=== PATIENT | male | born 1950 | race Caucasian/White ===

== ENCOUNTER → 2017-03-14 | Outpatient (CLI) | payer MEDICARE ==
[~2017-03-14] MED LIST: BARIUM SUSPENSION 2.1% (VANILLA SILQ) 450 ML PO ONE; CATHETER FLUSH 10 ML SYR IV PRN; GI COCKTAIL; IOHEXOL 350 MG/ML 100 ML (OMNIPAQUE 350) VIAL IV ONE; KETO-22 PO; LVT.1T PO; NS 100 ML (IVPB) BAG IV ONE; ONDAN4ODT PO; OXYC-12 PO; PNT40TEC PO
[2017-03-14 10:42] LABS: BLOOD UREA NITROGEN 14 MG/DL (7-18); BUN/CREATININE RATIO 18; CREATININE SERUM 0.79 MG/DL (0.60-1.30); GFR ESTIMATED > 60
== END ==
LOC: CARD 09:45
PROVIDERS: ATTEND Urology
DX: C61 Malignant neoplasm of prostate (principal)
CPT/HCPCS: 36415; 74177; 78306; 82565; 84520

== ENCOUNTER → 2017-03-18 | Outpatient (CLI) | payer MEDICARE ==
[~2017-03-18] MED LIST changes: -BARIUM SUSPENSION 2.1% (VANILLA SILQ) 450 ML PO ONE; -CATHETER FLUSH 10 ML SYR IV PRN; +GADOBUTROL 10 MMOL/10 ML (GADAVIST) VIAL IV ONE; -IOHEXOL 350 MG/ML 100 ML (OMNIPAQUE 350) VIAL IV ONE; -NS 100 ML (IVPB) BAG IV ONE
--- NOTE | 2017-03-21 09:52 | Diagnostic Imaging Report ---
PROCEDURE: MRI pelvis with and without contrast. TECHNIQUE: Multiplanar, multisequence MRI of the pelvis was performed with and without contrast. INDICATION: Prostate cancer. 9 mL of Gadavist was administered intravenously. FINDINGS: There is a 2.5 x 1.9 x 2.2 cm T2 hypointense enhancing gas mass seen in the periphery of the prostate along the right slightly posterior aspect of the prostate. This is seen on previous CT scan of 03/14/2017. This lesion appears to be resulting in a bulging contour of the prostate capsule with no definitive penetration through the capsule. The bulging contour of the capsule at the level of the mass decreases the thickness of the fatty plane between the puborectalis and the prostate; however, there is no definite invasion of the fatty plane the two structures and there is no invasion of the muscle. Posteriorly, this was inseparable from the rectum based on the CT findings. However, the rectal contour appears to be intact on this exam with no evidence of invasion. The seminal vesicles do not appear to be involved. There is no pelvic lymphadenopathy seen. No significant marrow signal abnormality is seen. IMPRESSION: There is an enhancing 2.5 cm lobulated mass along the right side of the prostate gland posteriorly in the peripheral zone bulging the contour of the prostate with no evidence of invasion through the prostate capsule into the adjacent tissues. Dictated by: Dictated on workstation # [id number]
== END ==
LOC: RAD 11:28
PROVIDERS: ATTEND Urology
DX: C61 Malignant neoplasm of prostate (principal)
CPT/HCPCS: 72197

== ENCOUNTER 2017-05-22 05:32 | Outpatient (CLI) | payer MEDICARE ==
[~2017-05-22] VITALS: Ht 174 cm; Wt 93.4 kg
[~2017-05-22 05:32] MED LIST changes: -GADOBUTROL 10 MMOL/10 ML (GADAVIST) VIAL IV ONE
[2017-05-22] MEDS ORDERED: LEVO25TA5 PO (10:10)
[2017-05-22] MEDS ORDERED: AZEL137S11 NS (10:10)
[2017-05-22] MEDS ORDERED: PIOG15TA22 PO (10:10)
== END 2017-05-22 12:01 ==
LOC: PREOP 05:32
PROVIDERS: ATTEND Urology
DX: Z01.818 Encounter for other preprocedural examination (principal); C61 Malignant neoplasm of prostate

== ENCOUNTER 2017-05-24 05:50 | Inpatient (IN) | payer MEDICARE ==
[~2017-05-24] VITALS: Ht 174 cm; Wt 93.4 kg
[~2017-05-24 05:50] MED LIST changes: +AZEL137S11 NS; +LEVO25TA5 PO; +PIOG15TA22 PO
[2017-05-24] MEDS ORDERED: SEVOFLURANE (ULTANE) 15 ML INHAL SOLN ONE ×11 (06:35→11:48)
[2017-05-24] MEDS ORDERED: ONDANSETRON 4 MG/2 ML (SDV) Z0FRAN ONE (06:35)
[2017-05-24] MEDS ORDERED: ROCURONIUM 50 MG/5 ML (ZEMURON) VIAL IV ONE ×2 (06:35→10:02)
[2017-05-24] MEDS ORDERED: proPOfol 200 MG/20 ML (DIPRIVAN) VIAL IV ONE (06:35)
[2017-05-24] MEDS ORDERED: DEXAMETHASONE 10 MG/ML (DECADRON) 1 ML VIAL ONE (06:35)
[2017-05-24] MEDS ORDERED: MIDAZOLAM 2 MG/2 ML (VERSED) VIAL ONE (06:35)
[2017-05-24] MEDS ORDERED: fentaNYL INJECTION 100 MCG/2 ML AMP ONE ×2 (06:35→11:46)
[2017-05-24] MEDS ORDERED: LIDOCAINE PF 2% 5 ML (XYLOCAINE) VIAL ONE (06:35)
[2017-05-24] MEDS ORDERED: LIDOCAINE 4% INJ (XYLOCAINE) 5ML AMP ONE (06:46)
[2017-05-24] MEDS ORDERED: LIDOCAINE TOPICAL 4% 50 ML BTL ONE (06:49)
[2017-05-24] MEDS ORDERED: GLYCOPYRROLATE 0.2 MG/ML (ROBINUL) 2 ML VIAL ONE ×2 (06:54→11:33)
[2017-05-24] MEDS ORDERED: LIDOCAINE TOPICAL 4% 50 ML BTL TP ONE (07:00)
[2017-05-24] MEDS ORDERED: LACTATED RINGERS 1,000 ML IV PRN (07:18)
[2017-05-24 07:20] LABS: BASOPHILS % (AUTO) 0 % (0-10); EOSINOPHILS # (AUTO) 0.2 10^3/uL (0.0-0.3); EOSINOPHILS % (AUTO) 4 % (0-10); LYMPHOCYTES # (AUTO) 1.1 X 10^3 (1.0-4.0); LYMPHOCYTES % (AUTO) 23 % (12-44); MEAN CORPUSCULAR HEMOGLOBIN 31 PG (25-34); MEAN CORPUSCULAR HGB CONC 37 G/DL (32-36); MEAN CORPUSCULAR VOLUME 85 FL (80-99); MEAN PLATELET VOLUME 9.5 FL (7.4-10.4); MONOCYTES # (AUTO) 0.4 X 10^3 (0.0-1.0); MONOCYTES % (AUTO) 9 % (0-12); NEUTROPHILS # (AUTO) 2.9 X 10^3 (1.8-7.8); NEUTROPHILS % (AUTO) 64 % (42-75); PLATELET COUNT 167 10^3/uL (130-400); RED BLOOD COUNT 4.77 10^6/uL (4.35-5.85); RED CELL DISTRIBUTION WIDTH 13.1 % (10.0-14.5); WHITE BLOOD COUNT 4.6 10^3/uL (4.3-11.0)
[2017-05-24] MEDS ORDERED: GLYCOPYRROLATE 0.2 MG/ML (ROBINUL) 2 ML VIAL IV ONE (07:30)
[2017-05-24] MEDS ORDERED: KETAMINE HCL 100 MG/ML 5 ML VIAL ONE (07:41)
[2017-05-24 08:07] VITALS: BP 163/91
[2017-05-24] MEDS ORDERED: SUCCINYLCHOLINE INJ 100 MG/5 ML SYR ONE (10:02)
[2017-05-24] MEDS ORDERED: PHENYLEPHRINE 100 MCG/ML 10 ML (ANESTHESIA) SYR ONE (11:32)
[2017-05-24] MEDS ORDERED: NEOSTIGMINE (BLOXIVERZ ) 1 MG/1ML 10 ML VIAL ONE (11:33)
[2017-05-24] MEDS ORDERED: KETOROLAC 30 MG/ML VIAL ONE (11:41)
[2017-05-24] MEDS ORDERED: BELLADONNA ALK/OPIUM (B & O) 30 MG SUPP PR PRN (11:45)
[2017-05-24] MEDS ORDERED: SIMETHICONE 80 MG (MYLICON) CHEW PO PRN (11:45)
[2017-05-24] MEDS ORDERED: ENOXAPARIN 40 MG/0.4 ML (LOVENOX) SYR SC SCH (11:45)
[2017-05-24] MEDS ORDERED: fentaNYL INJECTION 100 MCG/2 ML AMP IVP PRN (11:45)
[2017-05-24] MEDS ORDERED: ONDANSETRON 4 MG/2 ML (SDV) Z0FRAN IV PRN (11:45)
[2017-05-24] MEDS: KETOROLAC 30 MG/ML VIAL IV SCH ×3 (11:58→23:33)
[2017-05-24] MEDS ORDERED: ACETAMINOPHEN 120 MG SUPP (TYLENOL) PR SCH (12:00)
[2017-05-24] MEDS ORDERED: ONDANSETRON 4 MG/2 ML (SDV) Z0FRAN IVP PRN (12:15)
[2017-05-24] MEDS ORDERED: HYDROmorphone (DILAUDID) 2 MG/ML VIAL IVP PRN (12:15)
[2017-05-24 12:58] VITALS: BP 158/88
[2017-05-24] MEDS: LACTATED RINGERS 1,000 ML IV SCH ×2 (13:47→22:56)
[2017-05-24] MEDS: ACETAMINOPHEN 650 MG SUPP (TYLENOL) PR SCH ×2 (14:32→20:58)
[2017-05-24] MEDS: ceFAZolin 2 GM/50 ML NS 50 ML IV SCH ×2 (14:33→23:33)
[2017-05-24] MEDS ORDERED: INFLUENZA TRIvalent 2017-2018 0.5 ML/45 MCG SYR IM ONE (15:30)
--- NOTE | 2017-05-24 15:44 | OPERATIVE REPORT ---
DATE OF SERVICE: 05/24/2017 PREOPERATIVE DIAGNOSIS: Stage T1c [place] 7 PSA 6.52 adenocarcinoma of the prostate. POSTOPERATIVE DIAGNOSIS: Stage T1c Mir[place] 7 PSA 6.52 adenocarcinoma of the prostate. PROCEDURE: Robot-assisted laparoscopic prostatectomy with bilateral wide dissection and a bilateral pelvic lymph node dissection. SURGEON: Ratna Smith M.D. OCCUPATIONAL MEDICINE OFFICER SURGEON: Dr. Fagan . BLOOD LOSS: 150 mL. COMPLICATIONS: None. SPECIMEN: Prostate, seminal vesicles, and bilateral pelvic lymph nodes. ANESTHESIA: General endotracheal anesthesia. INDICATIONS FOR THE OPERATION: Are all outlined in my urology clinic note but basically this gentleman came in to see me for a newly diagnosed fairly high volume [place] 7 cancer and after a long discussion and after reviewing a CT bone scan and MRI of the pelvis, it was decided that this man likely still had localized disease, we would do a robot-assisted laparoscopic prostatectomy with a wide dissection since he is already having problems with erections and do a node dissection with the operation and additionally this gentleman felt very strongly that if the nodes were positive he was fine with stopping the operation and undergoing hormonal therapy. We went through the risks and benefits, advantages and disadvantages, all outlined in my urology clinic note on 04/11/2017. All questions were answered to his satisfaction. He has signed informed consent had IV antibiotics and a mechanical bowel prep. DESCRIPTION OF THE PROCEDURE: After this man was prepped and draped in the usual sterile fashion and placed in the low lithotomy position, padded throughout on his elbows, hands and legs and had SCDs applied and IV antibiotics administered, we placed an 18-Moldovan mentasta tip catheter with a 2-0 Vicryl tied on the end of it into his bladder. We then marked our port sites in the usual fashion lifting up on the abdominal wall with towel clamps on either side of the supraumbilical region, made a small punch in the midline, introduced a Veress needle into the abdomen and then after ensuring we were intraperitoneal, completed insufflation of 15 cm of pressure. We extended the incision in the midline and placed a nonbladed 10/12 mm trocar into the abdomen. Through this port, I examined the intra-abdominal contents and found no problems and no adhesions. Once I put the rest of the trocars in the usual fashion and put the patient in steep Trendelenburg position and docked the robot. I began by going across the urachal remnant and following the medial umbilical ligaments back to the vas deferens. Once I reached the vas deferens bilaterally harvested a piece of that to bolster the bladder neck anastomosis. I then did a lymph node dissection in standard fashion, splitting the tissue over the external iliac vein down to the pubic bone and back up to the crossing of the ureter bilaterally. I extended the incision against the pelvic sidewall and completely skeletonized the obturator nerve and vessels and took that entire lymph node packet on both sides and sent down for frozen section. Made sure that the nerve and the vessels were uninjured and the pathology came back as negative for malignancy. I then incised the endopelvic fascia and took down puboprostatic ligaments and using endovascular stapler to staple across the dorsal venous complex. I switched to a 30 degree down orientation on my lens and began dissection between the base of the prostate and bladder neck until I exposed the Bone catheter. I introduced a Antonino-Omaira and lifted up on the end of the Vicryl suture putting the Bone catheter on penile traction. I then went across the posterior bladder neck ensuring we did not injure the ureters and completely dissected the bladder from the base of the prostate until seminal vesicles and ampulla were exposed. I dissected out the entire seminal vesicles bilaterally and transected the vas deferens 1.5 cm proximal to the junction with the prostate. At this point, I then incised the Denonvilliers fascia underneath the prostate and dissected the rectum off from the base of the prostate all the way to his apex. I was left with two very nicely exposed pedicles and I used an endovascular stapler to staple both pedicles and that took me senior living up the prostate bilaterally. I released the Bone catheter traction and finished the dissection all the way down to the perirectal fat up to the apex of the prostate. I then replaced the Bone catheter and switched back to a 0 degree lens and began a circumferential dissection of the apex of the prostate dissecting out the longest urethral stump, possible before transecting it. The prostate was inspected and found to have a significant amount of tissue on it and absolutely no areas where we felt we had gotten into the capsule. I then placed an EndoCatch bag for later removal. I then irrigated the pelvis until clear and saw no significant bleeding. There were no injuries to the rectum. I then introduced into the abdomen two 9 inch pieces of 2-0 Monocryl tied together and sutured across a piece of the vas deferens. Starting at the 6 o'clock position of the bladder neck and sutured it in the same position of the urethral stump, I did a running suture on the left from 6 to 12 with a blue suture and on the right from 6 to 12 with a clear suture. This was all done over a 20-Moldovan Silastic catheter and after transitioning my stitch across the bladder neck at the 12 o'clock position I removed both needles from the abdomen and had an accurate sponge and needle count and then tied down the sutures watertight with 10 mL placed in the balloon. I then irrigated the bladder till clear twice and saw no evidence of the leak. I then removed the EndoCatch bag in the midline for later removal, placed 19 Moldovan Doug drain next anastomosis and brought out the third arm site in the left lower quadrant. I then sutured in place with a 2-0 silk interrupted suture, undocked the robot, removed all port sites and extended our incision in the midline and removed the prostate. I grasped the anterior rectus fascia and closed with four sutures of interrupted #1Vicryl in [id number]-[id number] fashion. After ensuring we have not grabbed any bowel underneath we tied down the abdominal wall sutures watertight, irrigated all wounds and closed the skin using 4-0 undyed Monocryl in a running subcuticular fashion. We placed Dermabond on all wounds. Extubated patient and transported to recovery in excellent condition. Job ID: [id number] DocumentID: [id number] Dictated Date: 05/24/2017 11:56:17 Experimental Electronics Developer Date: 05/24/2017 15:44:38 Dictated By: RATNA SMITH MD
[2017-05-24 16:10] VITALS: BP 105/59
[2017-05-24 20:00] VITALS: BP 148/63
[2017-05-24] MEDS: POLYETHYLENE GLYCOL 17 GM (MIRALAX) PACK PO SCH (20:57)
[2017-05-24] MEDS: MILK OF MAGNESIA 400 MG/5 ML 30 ML UDC PO SCH (20:57)
[2017-05-25] VITALS: BP_SYST 131; BP_SYST 139; BP_DIAS 64; BP_DIAS 66
[2017-05-25] MEDS: ACETAMINOPHEN 650 MG SUPP (TYLENOL) PR SCH ×2 (02:38→09:50)
[2017-05-25 04:00] VITALS: BP 139/64
[2017-05-25] MEDS: ceFAZolin 2 GM/50 ML NS 50 ML IV SCH (06:15)
[2017-05-25] MEDS: KETOROLAC 30 MG/ML VIAL IV SCH (06:16)
[2017-05-25] MEDS ORDERED: LEVOTHYROXINE 25 MCG (LEVOTHROID) TAB PO SCH (06:30)
[2017-05-25] MEDS: LACTATED RINGERS 1,000 ML IV SCH (07:57)
[2017-05-25 08:23] VITALS: BP 138/75
[2017-05-25] MEDS: POLYETHYLENE GLYCOL 17 GM (MIRALAX) PACK PO SCH (09:49)
[2017-05-25] MEDS: MILK OF MAGNESIA 400 MG/5 ML 30 ML UDC PO SCH (09:49)
--- NOTE | 2017-05-25 11:03 | Discharge Inst-Urology ---
Discharge Inst-Urology Discharge Medications New, Converted, or Re-newed RX: Call to Patient Pharmacy Patient Instructions/Follow Up Plan DC Hemovac and IV and DC patient with Bone and led bag day time and large bag night time with instructions Patient to come to office in 10 days to DC Bone and see me 2 weeks later, rest till then Showers, keep bowels soft and moving Increase oral fluids for 48 hours and then as needed. Diet and Activity as tolerated. If questions or concerns contact your physician Or seek help at emergency department. SHANON BEDOYA MD May 25, 2017 11:03 am
[2017-05-25 12:00] VITALS: BP 113/62
[2017-05-25] MEDS ORDERED: BACTRIM DS (12:01)
--- NOTE | 2017-05-25 13:09 | Anesthesia-General Post-Op ---
General Patient Condition Mental Status/LOC: Same as Preop Cardiovascular: Satisfactory Nausea/Vomiting: Absent Respiratory: Satisfactory Pain: Controlled Complications: Absent Post Op Complications Complications None Follow Up Care/Instructions Patient Instructions None needed. Anesthesia/Patient Condition Patient Condition Patient is doing well, no complaints, stable vital signs, no apparent adverse anesthesia problems. No complications reported per nursing. D/C home per [facility] Criteria: LOLITA Coleman DO May 25, 2017 13:09
== END 2017-05-25 12:40 | disposition home or self-care (01) | DRG 708 ==
LOC: 4TH 05:50 → SURG 05:51 → 4TH 12:58
PROVIDERS: ADMIT Urology; ATTEND Urology
PROC: 0VT34ZZ Resection of Bilateral Seminal Vesicles, Percutaneous Endoscopic Approach (ICD-10-PCS; 2017-05-24)
PROC: 07TC4ZZ Resection of Pelvis Lymphatic, Percutaneous Endoscopic Approach (ICD-10-PCS; 2017-05-24)
PROC: 8E0WXCZ Robotic Assisted Procedure of Trunk Region (ICD-10-PCS; 2017-05-24)
PROC: 0VT04ZZ Resection of Prostate, Percutaneous Endoscopic Approach (ICD-10-PCS; principal; 2017-05-24 07:44)
DX: C61 Malignant neoplasm of prostate (principal); N52.9 Male erectile dysfunction, unspecified; E11.42 Type 2 diabetes mellitus with diabetic polyneuropathy; J45.909 Unspecified asthma, uncomplicated; E03.9 Hypothyroidism, unspecified; K21.9 Gastro-esophageal reflux disease without esophagitis; Z85.810 Personal history of malignant neoplasm of tongue; Z92.3 Personal history of irradiation
CPT/HCPCS: 36415; 82962; 85025; 87081; 94664

== ENCOUNTER 2018-05-31 13:56 | Outpatient (CLI) | payer MEDICARE, OTHER ==
[~2018-05-31] VITALS: Ht 174 cm; Wt 83.9 kg
[~2018-05-31 13:56] MED LIST changes: +BACTRIM DS; -PIOG15TA22 PO; +PIOG15TA67 PO
[2018-05-31] MEDS ORDERED: MULT-1102 PO (15:21)
[2018-05-31] MEDS ORDERED: NF-VITD400 PO (15:21)
== END 2018-05-31 15:23 | disposition home or self-care (01) ==
LOC: PREOP 13:56
PROVIDERS: ATTEND Surgery
DX: Z01.818 Encounter for other preprocedural examination (principal)

== ENCOUNTER 2018-06-04 07:08 | Day surgery (SDC) | payer MEDICARE, OTHER ==
[~2018-06-04] VITALS: Ht 174 cm; Wt 83.9 kg
[~2018-06-04 07:08] MED LIST changes: +MULT-1102 PO; +NF-VITD400 PO
--- OUTSIDE RECORDS SUMMARY | 2018-06-04 07:11 | XMS REPORT | Continuity of Care Document ---
Author Author [facility] Organization [facility] Address Unknown Phone Unavailable Allergies Active Description Code Type Severity Reaction Onset Reported/Identified Relationship to Patient Clinical Status Yes morphine [id number] Drug Allergy Mild "DOESN'T WORK", 05/24/2017 Yes hydrocodone [id number] Drug Allergy Unknown N/A 05/24/2017 Yes prednisone [id number] Drug Allergy Unknown N/A 05/24/2017 Yes Sulfa (Sulfonamide Antibiotics) [id number] Drug Allergy Unknown N/A 2017 Medications There is no data. Problems Date Dx Coded Attending Type Code Diagnosis Diagnosed By 10/28/2012 CONCETTA ROUSE DO Ot 462 ACUTE PHARYNGITIS 10/28/2012 CONCETTA ROUSE DO Ot 530.81 ESOPHAGEAL REFLUX 10/28/2012 CONCETTA ROUSE DO Ot 787.20 DYSPHAGIA, UNSPECIFIED 10/28/2012 CONCETTA ROUSE DO Ot V58.69 OTH MED,LT,CURRENT USE 03/14/2017 Ot 141.9 MALIG NAV TONGUE NOS 03/15/2017 SHANON BEDOYA MD Ot C61 MALIGNANT NEOPLASM OF PROSTATE 03/27/2017 AURELIANO ROLLE, SHANON A Ot C61 MALIGNANT NEOPLASM OF PROSTATE 03/30/2017 AURELIANO ROLLE, SHANON A Ot C61 MALIGNANT NEOPLASM OF PROSTATE 03/31/2017 AURELIANO ROLLE, SHANON A Ot C61 MALIGNANT NEOPLASM OF PROSTATE 04/01/2017 AURELIANO ROLLE, SHANON A Ot C61 MALIGNANT NEOPLASM OF PROSTATE 04/04/2017 AURELIANO ROLLE, SHANON A Ot C61 MALIGNANT NEOPLASM OF PROSTATE 05/02/2017 AURELIANO ROLLE, SHANON A Ot C61 MALIGNANT NEOPLASM OF PROSTATE 05/02/2017 AURELIANO ROLLE, SHANON A Ot C61 MALIGNANT NEOPLASM OF PROSTATE 05/02/2017 AURELIANO ROLLE, SHANON A Ot C61 MALIGNANT NEOPLASM OF PROSTATE 05/02/2017 SHANON BEDOYA MD A Ot C61 MALIGNANT NEOPLASM OF PROSTATE 05/08/2017 AURELIANO ROLLE, SHANON A Ot C61 MALIGNANT NEOPLASM OF PROSTATE 05/08/2017 AURELIANO ROLLE, SHANON A Ot C61 MALIGNANT NEOPLASM OF PROSTATE 05/08/2017 AURELIANO ROLLE, SHANON A Ot C61 MALIGNANT NEOPLASM OF PROSTATE 05/08/2017 AURELIANO ROLLE, SHANON A Ot C61 MALIGNANT NEOPLASM OF PROSTATE 05/24/2017 Ot 141.9 MALIG NAV TONGUE NOS 05/25/2017 RATNA SMITH MD, Ot C61 MALIGNANT NEOPLASM OF PROSTATE 05/25/2017 RATNA SMITH MD, Ot E03.9 HYPOTHYROIDISM, UNSPECIFIED 05/25/2017 RATNA SMITH MD Ot E11.42 TYPE 2 DIABETES MELLITUS WITH DIABETIC P 05/25/2017 RATNA SMITH MD, Ot J45.909 UNSPECIFIED ASTHMA, UNCOMPLICATED 05/25/2017 RATNA SMITH MD, Ot K21.9 GASTRO-ESOPHAGEAL REFLUX DISEASE WITHOUT 05/25/2017 RATNA SMITH MD Ot N52.9 MALE ERECTILE DYSFUNCTION, UNSPECIFIED 05/25/2017 RATNA SMITH MD Ot Z85.810 PERSONAL HISTORY OF MALIGNANT NEOPLASM O 05/25/2017 RATNA SMITH MD, Ot Z92.3 PERSONAL HISTORY OF IRRADIATION 05/31/2018 Ot 141.9 MALIG NAV TONGUE NOS 05/31/2018 JULIET CABA DO, Ot Z01.818 ENCOUNTER FOR OTHER PREPROCEDURAL EXAMIN 06/01/2018 JULIET CABA DO, Ot Z01.818 ENCOUNTER FOR OTHER PREPROCEDURAL EXAMIN Procedures Code Description Performed By Performed On 15GB3KH RESECTION OF PELVIS LYMPHATIC, PERC ENDO 05/24/2017 [id number] RESECTION OF PROSTATE, PERCUTANEOUS ENDO 05/24/2017 1FL77IJ RESECTION OF BILATERAL SEMINAL VESICLES, 05/24/2017 [id number] ROBOTIC ASSISTED PROCEDURE OF TRUNK REY 05/24/2017 Results Test Result Range [id number] - 03/14/17 10:15 Serum or plasma urea nitrogen measurement (mass/volume) 14 mg/dL 7-18 Serum or plasma creatinine measurement (mass/volume) 0.79 mg/dL 0.60-1.30 Serum or plasma urea nitrogen/creatinine mass ratio 18 NRG Serum or plasma creatinine measurement with calculation of estimated glomerular filtration rate > NRG Capillary blood glucose measurement by glucometer (mass/volume) - 05/24/17 06: 42 Capillary blood glucose measurement by glucometer (mass/volume) 118 mg/dL 70-110 Complete blood count (CBC) with automated white blood cell (WBC) differential - 05/24/17 07:05 Blood leukocytes automated count (number/volume) 4.6 10*3/uL 4.3-11.0 Blood erythrocytes automated count (number/volume) 4.77 10*6/uL 4.35-5.85 Venous blood hemoglobin measurement (mass/volume) 14.8 g/dL 13.3-17.7 Blood hematocrit (volume fraction) 41 % 40-54 Automated erythrocyte mean corpuscular volume 85 [foz_us] 80-99 Automated erythrocyte mean corpuscular hemoglobin (mass per erythrocyte) 31 pg 25-34 Automated erythrocyte mean corpuscular hemoglobin concentration measurement ( mass/volume) 37 g/dL 32-36 Automated erythrocyte distribution width ratio 13.1 % 10.0-14.5 Automated blood platelet count (count/volume) 167 10*3/uL 130-400 Automated blood platelet mean volume measurement 9.5 [foz_us] 7.4-10.4 Automated blood neutrophils/100 leukocytes 64 % 42-75 Automated blood lymphocytes/100 leukocytes 23 % 12-44 Blood monocytes/100 leukocytes 9 % 0-12 Automated blood eosinophils/100 leukocytes 4 % 0-10 Automated blood basophils/100 leukocytes 0 % 0-10 Blood neutrophils automated count (number/volume) 2.9 10*3 1.8-7.8 Blood lymphocytes automated count (number/volume) 1.1 10*3 1.0-4.0 Blood monocytes automated count (number/volume) 0.4 10*3 0.0-1.0 Automated eosinophil count 0.2 10*3/uL 0.0-0.3 Automated blood basophil count (count/volume) 0.0 10*3/uL 0.0-0.1 Methicillin resistant Staphylococcus aureus (MRSA) screening culture - 07:10 Methicillin resistant Staphylococcus aureus (MRSA) screening culture NEG NRG Capillary blood glucose measurement by glucometer (mass/volume) - 05/24/17 16: 16 Capillary blood glucose measurement by glucometer (mass/volume) 164 mg/dL 70-110 Encounters ACCT No. Visit Date/Time Discharge Status Pt. Type Provider Facility Loc./Unit Complaint [id number] 05/31/2018 13:56:00 05/31/2018 15:23:00 DIS Outpatient JULIET CABA DO [facility] PREOP COLONOSCOPY [id number] 05/24/2017 05:50:00 05/25/2017 12:40:00 DIS Inpatient RATNA SMITH MD [facility] 4TH PROSTATE CA [id number] 05/22/2017 05:32:00 05/22/2017 12:01:00 DIS Outpatient RATNA SMITH MD [facility] PREOP PROSTATE CA [id number] 03/18/2017 11:28:00 03/18/2017 23:59:59 CLS Outpatient SHANON BEDOYA MD [facility] RAD PROSTATE CA [id number] 03/14/2017 09:45:00 03/14/2017 23:59:59 CLS Outpatient SHANON BEDOYA MD [facility] CARD PROSTATE CA [id number] 10/28/2012 18:35:00 10/28/2012 21:15:00 DIS Emergency NASIM CONCETTA AMES [facility] ER SOA; THROAT SWELLING [id number] 06/04/2018 08:30:00 PEN Preadmit JULIET CABA DO [facility] ENDO POSITIVE HEMOCCULT [id number] 02/25/2013 00:00:00 Document Registration
--- OUTSIDE RECORDS SUMMARY | 2018-06-04 07:11 | XMS REPORT | Continuity of Care Document ---
Author Author [facility] Organization [facility] Address Unknown Phone Unavailable Care Team Providers Care Philatelic Consultant Name Role Phone BRIDGET VILLA MD PP Insurance Providers Payer Name Policy Number Subscriber Name Relationship Self Pay Alfredo Castano 01 Self / Same As Patient Advance Directives Directive Response Recorded Date Advance Directives N 10/28/12 6:38pm Health Care Power of Tank Truck Driver N 10/28/12 6:38pm Organ Donor N 10/28/12 6:38pm Problems No Known Problems or Medical conditions. Family History History Response Recorded Date/Time Hx Family Cancer Y sister uterus, 1:15pm Social History History Response Recorded Date/Time Alcohol Use Denies Use 10/28/12 6:38pm Recreational Drug Use N 10/28/12 6:38pm Allergies, Adverse Reactions, Alerts Allergen Type Severity Reaction Last Updated Morphine Allergy Mild "DOESN'T WORK", LITTLE ITCHING 08/02/07 Hydrocodone Allergy Unknown 08/02/07 Prednisone Allergy 02/22/10 Medications Medication Dose Units Route Sig Qty Days [Gi Cocktail] 7 Ketorolac Tromethamine (Toradol) 10 Mg PO Q6H PRN 15 Pantoprazole Sodium (Protonix) 1 Tab PO BID 60 Ondansetron HCl (Zofran Oral Dissolve) 4 Mg PO Q4H 10 Levothyroxine Sodium (Levothyroxine 100 Mcg Tab) 20 Mcg PO DAILY Oxycodone Hcl/Acetaminophen (Percocet 5-325 Mg Tablet) 1 Each PO 1-2 PO EVERY 4-6 HR. Response Recorded Date/Time Status not known Unknown Results No Known Relevant Diagnostic Tests, Laboratory Data and/or Discharge Summary. Procedures Procedure Code Date INSERT TUNNELED CV CATH [id number] 04/17/07 PLACE GASTROSTOMY TUBE 41035 04/17/07 TREATMENT OF ANKLE FRACTURE [id number] Encounters Encounter Location Date/Time Departed Emergency Room [facility] 6:35pm Discharged Inpatient [facility] 12: 00am
[2018-06-04 07:13] VITALS: BP 168/84
[2018-06-04] MEDS ORDERED: LACTATED RINGERS 1,000 ML IV ONE (07:18)
[2018-06-04] MEDS ORDERED: PROPOFOL INJECTION 50 ML IV ONE ×2 (07:28→09:11)
[2018-06-04] MEDS ORDERED: MIDAZOLAM 2 MG/2 ML (VERSED) VIAL ONE (07:28)
[2018-06-04] MEDS ORDERED: LACTATED RINGERS 1,000 ML IV STA (07:35)
--- NOTE | 2018-06-04 08:04 | Progress Note-Pre Operative ---
Pre-Operative Progress Note H&P Reviewed The H&P was reviewed, patient examined and no changes noted. Time Seen by Provider: 08:00 Date H&P Reviewed: Jun 04, 2018 Time H&P Reviewed: 08:01 Pre-Operative Diagnosis: + Fecal Test JULIET CABA DO Jun 04, 2018 08:04
--- NOTE | 2018-06-04 09:26 | Progress Note-Post Operative ---
Post-Operative Progess Note Surgeon (s)/Kiln Fireman (s) Surgeon JULIET CABA DO [employer]n Fireman: none Pre-Operative Diagnosis + Fecal Test Post-Operative Diagnosis Rectal ulcer Int hemorrhoids Procedure & Operative Findings Date of Procedure 06/04/18 Procedure Performed/Findings Colon with hot bx Anesthesia Type IV sedation by MEAT TEAM LEAD Estimated Blood Loss Estimated blood loss (mL): scant Specimens/Packing Specimens Removed rectal bx JULIET CABA DO Jun 04, 2018 09:26
--- NOTE | 2018-06-04 09:27 | Endoscopy Discharge Instruct ---
Endo Procedure/Findings Findings 1.: Vascular Ectasias 2.: Other Findings (rectal ulcer) 3.: Internal Hemorrhoids Discharge Instructions - Activity: You might feel a little sleepy until tomorrow. This is due to the medicine you received to relax you. Until tomorrow, you should: NOT drive a car, operate machinery or power tools. NOT drink any alcoholic beverages. NOT make any important decisions or sign importortant papers. Do not return to work until tomorrow, unless otherwise instructed. Resume previous activities tomorrow. Diet: Start by taking liquids. If you tolerate liquids, advance to solid food. Make an appointment for one week Notify Physician - If you experience excessive bleeding, unusual abdominal pain, fever, or chest pain, contact your doctor immediately. Follow-Up: - I have received and understand the above instructions and will call my doctor if I have any further questions. Patient Signature Date Nurse Signature Other (Relationship) JULIET CABA DO Jun 04, 2018 09:27
[2018-06-04 09:45] VITALS: BP 128/63
[2018-06-04 10:15] VITALS: BP 132/80
[2018-06-04 10:40] VITALS: BP 132/80
--- NOTE | 2018-06-04 10:41 | Anesthesia-General Post-Op ---
MAC Patient Condition Mental Status/LOC: Same as Preop Cardiovascular: Satisfactory Nausea/Vomiting: Absent Respiratory: Satisfactory Pain: Controlled Complications: Absent Post Op Complications Complications None Follow Up Care/Instructions Patient Instructions None needed. Anesthesiology Discharge Order Discharge Order Patient was seen after the procedure and he was doing well, no complaints, stable vital signs, no apparent adverse anesthesia problems. TRINITY SPANN DO Jun 04, 2018 10:41
--- NOTE | 2018-06-04 12:59 | OPERATIVE REPORT ---
DATE OF SERVICE: 06/04/2018 PREOPERATIVE DIAGNOSIS: Positive fecal test. POSTOPERATIVE DIAGNOSES: 1. Rectal ulcer. 2. Internal hemorrhoids. PROCEDURE: Colonoscopy with hot biopsy. SURGEON: Mack Valderrama DO LABORATORY COURIER: None. ANESTHESIA: IV sedation by the VEGETABLES COOK. SPECIMEN: Rectal biopsy. BLOOD LOSS: Scant. FLUIDS: Per anesthesia. POSTOPERATIVE CONDITION: Stable. INDICATION FOR PROCEDURE: The patient is a 68-year-old male who had a fecal test done. He is not sure whether it was a Cologuard or a Hemoccult test. It was positive and he needed a colonoscopy. FINDINGS: The patient had a small ulcer in the rectum, some small internal hemorrhoids, but no other obvious pathology. PROCEDURE NOTE: After informed consent was obtained, the patient was brought to the endoscopy suite, placed on the bed in lithotomy position. He was administered IV sedation by the VEGETABLES COOK who then monitored his vitals the entire time, heart rate, blood pressure and pulse ox and the scope was inserted. At first, pushed all the way to about 150 cm, able to get to the cecum, took a picture of appendiceal orifice, then noted the ileocecal valve and able to get into the terminal ileum, took a picture and then slowly withdrew the scope insufflating to look circumferentially at the chavis looking at the cecum up the ascending colon to the hepatic flexure, then down the transverse colon, the splenic flexure into the descending colon and down in the sigmoid and finally into the rectum and in the rectum saw what looked like an ulceration, took a picture of this and then did a hot biopsy of this. Retroflexed the rectal vault, saw some minimal internal hemorrhoids, took a picture of this and then removed the scope. The patient tolerated the procedure and he was recovered in the endoscopy suite. Job ID: [id number] DocumentID: [id number] Dictated Date: 06/04/2018 09:30:12 Accounts Payable Coordinator Date: 06/04/2018 12:58:32 Dictated By: MACK VALDERRAMA DO [facility]ITALJose
== END 2018-06-04 10:40 | disposition home or self-care (01) ==
LOC: ENDO 07:08
PROVIDERS: ATTEND Surgery
DX: K62.6 Ulcer of anus and rectum (principal); K64.8 Other hemorrhoids; K52.9 Noninfective gastroenteritis and colitis, unspecified; E11.42 Type 2 diabetes mellitus with diabetic polyneuropathy; Z88.1 Allergy status to other antibiotic agents; Z88.5 Allergy status to narcotic agent; Z88.8 Allergy status to other drugs, medicaments and biological substances; Z88.2 Allergy status to sulfonamides; Z85.46 Personal history of malignant neoplasm of prostate; Z85.810 Personal history of malignant neoplasm of tongue
CPT/HCPCS: 88305